=== PATIENT | female | born 1975 | race Caucasian/White ===

== ENCOUNTER 2021-09-06 13:01 | Emergency (ER) | payer BC, SELFPAY ==
[2021-09-06 13:22] VITALS: BP 128/79; PULSE 85; RESP 16; TEMP 36.4; O2SAT 95; BMI 26.5
--- NOTE | 2021-09-06 13:48 | ED_ITS ---
Documented by User: JOSE Barrientos 09/06/21 13:52 HPI - Weakness General: Chief complaint: Weakness Stated complaint: right side pain / right ear pain Time Seen by Provider: 09/06/21 13:33 History of Present Illness: Presents today with chronic right side pain that goes from head down to her foot basically. Said she needs to be worked up for MS. She said she was seen a few years ago and was told superadded MS need a spinal tap but she never got that done. She did see her primary care provider here recently who did a right shoulder x-rays and told was fine but gave her 4 intramuscular shots in the office to help with her problems. Patient said her pain is no worse today but she would like to find out what is going on. Associated symptoms: Denies chest pain, chills, fever(s), headache(s), nausea or vomiting Review of Systems Const: Denies: fever(s), chills or body aches Eyes: Denies: eye discomfort ENMT: Denies: throat pain Card: Denies: chest pain Resp: Denies: dyspnea GI: Denies: abdominal pain, nausea or vomiting Skin/Breast: Denies: rash Neuro: Reports: other (Patient said it hurts on the right side of her body from head down to her f); Denies: headache(s) Psych: Denies: depression or suicidal ideation Physical Exam Const: COMMON NORMALS: no acute distress, patient oriented x3 and alert HENMT: COMMON NORMALS: normocephalic and external ears normal HEAD & SCALP: normocephalic EXTERNAL EAR: Yes external ears normal Eye: COMMON NORMALS: EOMs intact bilaterally Neck/C-Spine: COMMON NORMALS: no JVD Resp: COMMON NORMALS: normal respiratory effort and No use of accessory muscles Cardio: COMMON NORMALS: no JVD GI: INSPECTION: Yes normal to inspection Extremity: COMMON NORMALS: normal to inspection and full ROM NARRATIVE EXTREMITY EXAM: Patient has full range of motion right side of her body neurologically she appears intact. She has no numbness or weakness in extremities. Neuro: COMMON NORMALS: patient oriented x3 SENSORIUM/ORIENTATION: Yes alert COORDINATION/BALANCE: other (Gait is normal and speech is normal) COORDINATION: other (Gait is normal and speech is normal) Psych: COMMON NORMALS: mental status grossly normal Skin: COMMON NORMALS: no rashes or lesions noted GENERAL SKIN EXAM: no rashes or lesions noted Course Vital Signs: Vital signs: Vital Signs Temperature 97.6 F 09/06/21 13:22 Pulse Rate 75 09/06/21 14:26 Respiratory Rate 18 09/06/21 14:26 Blood Pressure 123/77 09/06/21 14:26 Pulse Oximetry 95 09/06/21 14:26 MDM - Weakness Medical Decision Making Gave patient medication for pain that she has. I encouraged her to follow-up with Dr. Silva. She said she was told they were try to make an appointment for a long time ago and she never got a call back. I informed work-up for MS needs with take place in outpatient setting. Patient given chronic nature of her problems. Discharge Plan Discharge Patient Disposition: Home Clinical Impression: Side pain Condition: Stable Prescriptions: New tramadol 50 mg tablet 50 mg PO TID PRN (Reason: pain) Qty: 7 0RF Celebrex 100 mg capsule 100 mg PO BID Qty: 20 0RF Discharge Orders: Discharge ED (Routine); Ordered 09/06/21 Ordered By: Magen Navsa Referrals: Kelvin Silva,Onur Gorman MD [Primary Care Provider] - Discharge Diet: Usual diet Discharge Activity: Increase activity as tolerated Activity Restrictions/Additional Instructions: Follow-up with medical provider as directed. Take medications as prescribed. Return to the ER or your medical provider if condition worsens. Please read and understand discharge instructions. If any questions ask please. Hospital should contact you with appointment for Dr. Silva's office soon. Should get all your medical record together from previous visits to have to give to Dr. Silva. Coding Level of Care Code ED Supervisor Cold Rolling for Chg Fwd Exam Comprehensive Documented by User: Bam Gibbs MD 09/08/21 12:29 HPI - Weakness General: Chief complaint: Weakness Stated complaint: right side pain / right ear pain Time Seen by Provider: 04/16/22 13:33 Course Vital Signs: Vital signs: Vital Signs Temperature 97.6 F 09/06/21 13:22 Pulse Rate 75 09/06/21 14:26 Respiratory Rate 18 09/06/21 14:26 Blood Pressure 123/77 09/06/21 14:26 Pulse Oximetry 95 09/06/21 14:26 MDM - Weakness Medical Decision Making Gave patient medication for pain that she has. I encouraged her to follow-up with Dr. Silva. She said she was told they were try to make an appointment for a long time ago and she never got a call back. I informed work-up for MS needs with take place in outpatient setting. Patient given chronic nature of her problems. Dr. Gibbs - Patient evaluation, diagnosis, and management was performed independently by Magen Navas. I did not personally see the patient nor staff the patient with patient's provider. I did review the patient's note today and I believe this note is consistent. Discharge Plan Discharge Patient Disposition: Home Clinical Impression: Side pain Condition: Stable Prescriptions: New tramadol 50 mg tablet 50 mg PO TID PRN (Reason: pain) Qty: 7 0RF Celebrex 100 mg capsule 100 mg PO BID Qty: 20 0RF Discharge Orders: Discharge ED (Routine); Ordered 09/06/21 Ordered By: Magen Navas Referrals: Onur Warren Jr, MD [Primary Care Provider] - Discharge Diet: Usual diet Discharge Activity: Increase activity as tolerated Activity Restrictions/Additional Instructions: Follow-up with medical provider as directed. Take medications as prescribed. Return to the ER or your medical provider if condition worsens. Please read and understand discharge instructions. If any questions ask please. Hospital should contact you with appointment for Dr. Silva's office soon. Should get all your medical record together from previous visits to have to give to Dr. Silva. Coding Level of Care Code ED Supervisor Cold Rolling for Miroslavag Fwd Exam Comprehensive
[2021-09-06] MEDS: dexamethasone 10 mg/mL INJ IM (13:58)
[2021-09-06] MEDS: TRAMadol 50 mg Tablet PO (14:01)
[2021-09-06 14:26] VITALS: BP 123/77; PULSE 75; RESP 18; O2SAT 95
--- NOTE | 2021-09-08 13:08 | DCPLANNER ---
Addendum entered by Nell Baptiste 12/25/21 11:08: Patient had a follow up appointment scheduled with neurology - patient did not attend appointment. Addendum entered by Nell Baptiste 09/09/21 08:41: Patient has a follow up appointment scheduled for Wednesday, December 15, 2021 at 1:[address] Silva. Clinic will call patient with appointment information. Original Note: associate project manager had message to schedule a follow up appointment for patient with Dr. Silva. associate project manager sent patients information to the front office staff at neurology. Patients information will be printed and reviewed. Clinic will call patient with appointment information.
== END 2021-09-06 14:13 | disposition home or self-care (01) ==
PROVIDERS: Emergency Provider Nurse Practitioner Family; PCP Specialist
DX: R29.898 Other symptoms and signs involving the musculoskeletal system (principal); R53.1 Weakness; H92.01 Otalgia, right ear
CPT/HCPCS: 96372; 99283; J1100

== ENCOUNTER 2021-10-21 06:00 | Outpatient (RCR) | payer BC, SELFPAY | END 2021-10-21 23:55 | disposition home or self-care (01) | LOC: GPT 06:00 | PROVIDERS: PCP Specialist; Referring Provider Orthopaedic Surgery; Visit Provider Orthopaedic Surgery | DX: M75.01 Adhesive capsulitis of right shoulder (principal); M25.611 Stiffness of right shoulder, not elsewhere classified | CPT/HCPCS: 97110; 97140; 97163 ==

== ENCOUNTER 2021-10-22 06:00 | Outpatient (RCR) | payer BC, SELFPAY | END 2021-11-20 23:59 | disposition home or self-care (01) | LOC: GPT 06:00 | PROVIDERS: PCP Specialist; Referring Provider Orthopaedic Surgery; Visit Provider Orthopaedic Surgery | DX: M75.01 Adhesive capsulitis of right shoulder (principal); M25.611 Stiffness of right shoulder, not elsewhere classified | CPT/HCPCS: 97110; 97140 ==

== ENCOUNTER → 2021-11-19 11:16 | Outpatient (BNVA) | payer BC, SELFPAY | PROVIDERS: PCP Specialist; Visit Provider Family Medicine | DX: J02.9 Acute pharyngitis, unspecified (principal); J02.0 Streptococcal pharyngitis | CPT/HCPCS: 87880 ==

== ENCOUNTER → 2021-11-27 15:14 | Outpatient (BNVA) | payer BC, SELFPAY | PROVIDERS: PCP Specialist; Visit Provider Family Medicine | DX: S62.396A Other fracture of fifth metacarpal bone, right hand, initial encounter for closed fracture (principal); X58.XXXA Exposure to other specified factors, initial encounter | CPT/HCPCS: 73130 ==

== ENCOUNTER 2022-11-18 09:23 | Emergency (ER) | payer BC, MEDICAID, SELFPAY ==
[2022-11-18 09:36] VITALS: BP 143/93; PULSE 95; RESP 16; TEMP 36.7; O2SAT 98
--- NOTE | 2022-11-18 10:58 | W.ED.EXTPRO ---
HPI - Extremity Problem General: Chief complaint: Extremity Injury, Lower Stated complaint: leg pain Time Seen by Provider: 11/18/22 10:16 Source: patient Mode of arrival: ambulatory Limitations: no limitations History of Present Illness: 46-year-old female states she had chronic leg pain for years. States that she did swim yesterday and her pain is worsened states she is to see her PCP who gave her a pain shot but he left a month ago does not have a PCP currently states pains in both legs rates her pain a 7 out of 10 worse with walking improved with rest. Denies any back pain denies any fever Associated symptoms: Deny chest pain, fever(s) or rash Review of Systems Const: Denies: fever(s), chills, body aches or change in appetite Eyes: Denies: blurry vision or eye discomfort ENMT: Denies: throat pain or dental pain Card: Denies: chest pain Resp: Denies: dyspnea GI: Denies: abdominal pain, nausea, vomiting or diarrhea : Denies: dysuria Musc: Reports: extremity pain Skin/Breast: Denies: rash Neuro: Denies: headache(s) PFSH ED PFSH: Family History Other Diabetes Social History Smoking and tobacco status: current every day smoker cigarettes Alcohol intake: current Alcohol intake frequency: few times a month Current occupation: UNEMPLOYED Physical Exam Const: COMMON NORMALS: no acute distress, patient oriented x3 and healthy appearing HENMT: COMMON NORMALS: normocephalic and atraumatic HEAD & SCALP: normocephalic and atraumatic Eye: COMMON NORMALS: Equal, round and reactive pupils present and EOMs intact bilaterally PUPIL: Yes Equal, round and reactive pupils present Neck/C-Spine: COMMON NORMALS: full ROM Chest: COMMONS NORMALS: normal inspection of the chest and normal palpation of entire chest wall Resp: COMMON NORMALS: normal respiratory effort Cardio: COMMON NORMALS: regular rate, regular rhythm and No murmurs present (Cardio) RATE: regular rate RHYTHM: regular rhythm GI: COMMON NORMALS: non-tender INSPECTION: Yes normal to inspection Extremity: COMMON NORMALS: normal to inspection and full ROM Neuro: COMMON NORMALS: patient oriented x3, moves all extremities and no focal motor deficits Psych: COMMON NORMALS: mental status grossly normal, Normal thought process present and cooperative THOUGHT PROCESS: Normal thought process present Skin: COMMON NORMALS: no rashes or lesions noted and no wounds GENERAL SKIN EXAM: no rashes or lesions noted Course Vital Signs: Vital signs: Vital Signs Temperature 98.0 F 11/18/22 09:36 Pulse Rate 95 11/18/22 09:36 Respiratory Rate 16 11/18/22 09:36 Blood Pressure 143/93 11/18/22 09:36 Pulse Oximetry 98 11/18/22 09:36 Oxygen Delivery Me thod Room Air 11/18/22 09:36 MDM - Extremity (Nontraumatic) Medical Decision Making Patient presents here with leg pain that is chronic in nature its been going on for years we will give her morphine here we will prescribe her for Naprosyn we will get her new PCP as her PCP just move her exam here is benign. Discharge Plan Discharge Patient Disposition: Home Clinical Impression: Chronic pain Condition: Stable Prescriptions: New Naprosyn 500 mg tablet 500 mg PO BID PRN (Reason: pain) Qty: 20 0RF No Action tramadol 50 mg tablet 50 mg PO TID PRN (Reason: pain) Qty: 7 0RF duloxetine [Cymbalta] 60 mg capsule,delayed release(DR/EC) 60 mg PO DAILY cholecalciferol (vitamin D3) 50 mcg (2,000 unit) capsule 50 mcg PO DAILY ferrous sulfate [FeroSul] 325 mg (65 mg iron) tablet 325 mg PO DAILY amoxicillin-pot clavulanate [Augmentin] 500-125 mg tablet 1 tab PO TID Qty: 30 0RF Celebrex 100 mg capsule 100 mg PO BID Qty: 20 0RF Discharge Orders: Discharge ED (Routine); Ordered 11/18/22 Ordered By: Melodie Leonard Discharge Diet: Advance as tolerated Discharge Activity: Resume usual activity Patient Instructions: Chronic Pain (ED) Coding Level of Care Code ED Test Grader for Ivan Cuevas
[2022-11-18] MEDS: morphine 4 mg/mL SDV 1 mL IM (11:36)
== END 2022-11-18 11:37 | disposition home or self-care (01) ==
PROVIDERS: Emergency Provider Emergency Medicine
DX: G89.29 Other chronic pain (principal); F17.210 Nicotine dependence, cigarettes, uncomplicated
CPT/HCPCS: 96372; 99284; J2270

== ENCOUNTER 2022-12-14 13:24 | Emergency (ER) | payer BC, MEDICAID, SELFPAY ==
[2022-12-14 13:38] VITALS: BP 126/84; PULSE 106; RESP 16; TEMP 37.1; O2SAT 97; BMI 29.0
--- NOTE | 2022-12-14 15:01 | W.ED.DENTAL ---
HPI - Dental/Oral General: Chief complaint: Dental/Oral Stated complaint: tooth pain Time Seen by Provider: 12/14/22 14:30 History of Present Illness: Patient is a 46-year-old female comes to the ED with dental pain. Patient has poor dental health and says she has been having dental pain now for the last 3 weeks. She has not been able to set up a appointment with a dentist yet. She rates her dental pain currently an 8 out of 10. She has been taking naproxen at home to help with pain. Most of her pain is located in the left upper maxillary region around canine and incisors. Over the past 24 hours patient has developed some left maxillary facial edema. Denies any other symptoms. Associated symptoms: Denies fever(s) or odynophagia Review of Systems Const: Denies: fever(s), chills or fatigue Eyes: Denies: change in vision or eye discomfort ENMT: Reports: dental pain; Denies: throat pain, odynophagia, nasal discharge or nasal congestion Card: Denies: chest pain, palpitations, edema, swelling of feet/ankles, dyspnea on exertion or orthopnea Resp: Denies: dyspnea, productive cough or non-productive cough GI: Denies: abdominal pain, nausea, vomiting, diarrhea, constipation or hematochezia : Denies: flank pain, dysuria or hematuria Musc: Denies: neck pain, back pain or extremity swelling Skin/Breast: Denies: rash or new lesions Neuro: Denies: headache(s), numbness in extremities or weakness in extremities [facility] ED PFSH: Medical History (Updated 12/14/22 @ 15:07 by PAULETTE Minor) No pertinent family history Surgical History (Updated 12/14/22 @ 15:07 by PAULETTE Minor) History of cholecystectomy Family History Other Diabetes Social History Smoking and tobacco status: current every day smoker cigarettes Alcohol intake: current Alcohol intake frequency: few times a month Current occupation: UNEMPLOYED Physical Exam Const: COMMON NORMALS: no acute distress, patient oriented x3 and alert HENMT: COMMON NORMALS: normocephalic HEAD & SCALP: normocephalic FACE & SINUS: edema on the left maxilla MOUTH: Normal oral and palatal mucosa present TEETH & GINGIVA: Yes caries and Yes poor dentition THROAT: posterior oropharynx normal and uvula midline OTHER: Patient has extensive dental decay in her teeth all throughout her mouth. Neck/C-Spine: COMMON NORMALS: supple GENERAL: Yes normal visual inspection Resp: COMMON NORMALS: normal respiratory effort, No retractions, No use of accessory muscles and clear to auscultation bilaterally AUSCULTATION: clear to auscultation bilaterally Cardio: COMMON NORMALS: regular rate, regular rhythm, S1 normal heart sound present, S2 normal heart sound present, No gallops present (Cardio), No clicks present (Cardio), No murmurs present (Cardio) and Peripheral pulses 2+ throughout RATE: regular rate RHYTHM: regular rhythm HEART SOUNDS: S1 normal heart sound present and S2 normal heart sound present PERIPHERAL PULSES: Peripheral pulses 2+ throughout GI: COMMON NORMALS: Normal to inspection, nondistended, normoactive bowel sounds present, Soft to palpation, non-tender and no masses PALPATION: Yes Soft to palpation : COMMON NORMALS: Yes no CVA tenderness BLADDER/KIDNEY EXAM: Yes no CVA tenderness Back/Pelvis: COMMON NORMALS: no CVA tenderness Extremity: COMMON NORMALS: normal to inspection Neuro: COMMON NORMALS: patient oriented x3 SENSORIUM/ORIENTATION: Yes alert GAIT: Yes Normal gait present Skin: GENERAL SKIN EXAM: dry skin Course Vital Signs: Vital signs: Vital Signs Temperature 98.7 F 12/14/22 13:38 Pulse Rate 106 H 12/14/22 13:38 Respiratory Rate 16 12/14/22 13:38 Blood Pressure 126/84 12/14/22 13:38 Pulse Oximetry 97 12/14/22 13:38 Oxygen Delivery Me thod Room Air 12/14/22 13:38 MDM - Dental/Oral Medical Decision Making Patient is a 46-year-old female comes to the ED with dental pain. Patient has poor dental health and says she has been having dental pain now for the last 3 weeks. She has not been able to set up a appointment with a dentist yet. She rates her dental pain currently an 8 out of 10. She has been taking naproxen at home to help with pain. Most of her pain is located in the left upper maxillary region around canine and incisors. Over the past 24 hours patient has developed some left maxillary facial edema. Denies any other symptoms. Vitals are stable. On exam patient has extensive dental decay in her teeth all throughout her mouth. Very poor dentition. She has some left maxillary facial edema. Rest of exam is benign. Patient was diagnosed with a dental infection and told to follow-up with her dentist as soon as possible. She was sent home with a prescription for clindamycin and ibuprofen. Return ED precautions given. Patient understood and agreed with plan. Discharge Plan Discharge Patient Disposition: Home Clinical Impression: Dental infection Condition: Stable Prescriptions: New clindamycin HCl 150 mg capsule 300 mg PO QID 7 Days Qty: 56 0RF ibuprofen 800 mg tablet 800 mg PO Q8H PRN (Reason: pain) Qty: 30 0RF No Action tramadol 50 mg tablet 50 mg PO TID PRN (Reason: pain) Qty: 7 0RF duloxetine [Cymbalta] 60 mg capsule,delayed release(DR/EC) 60 mg PO DAILY cholecalciferol (vitamin D3) 50 mcg (2,000 unit) capsule 50 mcg PO DAILY ferrous sulfate [FeroSul] 325 mg (65 mg iron) tablet 325 mg PO DAILY amoxicillin-pot clavulanate [Augmentin] 500-125 mg tablet 1 tab PO TID Qty: 30 0RF Celebrex 100 mg capsule 100 mg PO BID Qty: 20 0RF Naprosyn 500 mg tablet 500 mg PO BID PRN (Reason: pain) Qty: 20 0RF Discharge Orders: Discharge ED (Routine); Ordered 12/14/22 Ordered By: Onur Kothari Referrals: Arnoldo Leavitt MD [Primary Care Provider] - Discharge Diet: Regular Discharge Activity: Increase activity as tolerated Patient Instructions: Dental Caries (Cavities), Dental Abscess (ED) Activity Restrictions/Additional Instructions: Follow-up with dentist as soon as possible to have dental infection treated. Take medications as prescribed. Return to the ER or your medical provider if condition worsens. Please read and understand discharge instructions. Thank you for choosing [facility] for your healthcare needs today. Please realize this is an emergency room and that we are providing you with a medical screening exam and this may not be complete and all inclusive of all the testing and or work up that you may need to determine your ailment or severity of your illness. It is very important that you follow up as instructed or that you return to the Emergency Department should you have concerns or if your condition changes or worsens in any way. Coding Level of Care Code ED Catalogue Maker for Ivan Cuevas
[2022-12-14] MEDS: clindamycin 150 mg Capsule 300 MG PO (15:09)
[2022-12-14] MEDS: HYDROcodone-acetaminophen 5-325 mg Tablet 1 TAB PO (15:09)
[2022-12-14] MEDS: dexamethasone 10 mg/mL INJ IM (15:12)
[2022-12-14] MEDS: ketorolac 60 mg/2 mL INJ IM (15:12)
== END 2022-12-14 15:18 | disposition home or self-care (01) ==
PROVIDERS: Emergency Provider Physician Assistant; PCP Family Medicine
DX: K04.7 Periapical abscess without sinus (principal); F17.210 Nicotine dependence, cigarettes, uncomplicated
CPT/HCPCS: 96372; 99284; J1100; J1885

== ENCOUNTER → 2023-02-10 15:12 | Outpatient (BNVA) | payer MEDICAID, SELFPAY | PROVIDERS: PCP Family Medicine; Visit Provider Nurse Practitioner Family | DX: M79.605 Pain in left leg (principal); R60.9 Edema, unspecified; M79.645 Pain in left finger(s) | CPT/HCPCS: 73130; 73590 ==

== ENCOUNTER 2023-07-09 11:02 | Emergency (ER) | payer MEDICAID, SELFPAY ==
[2023-07-09 11:43] VITALS: BP 163/101; PULSE 109; RESP 16; TEMP 36.7; O2SAT 97; BMI 32.8
--- NOTE | 2023-07-09 12:23 | ED_ITS ---
HPI - Extremity Problem General: Chief complaint: Extremity Problem,Nontraumatic Stated complaint: leg pains Time Seen by Provider: 07/09/23 11:17 Source: patient Mode of arrival: ambulatory Limitations: no limitations History of Present Illness: Patient is a 47-year-old female who presents to ED today for complaints of bilateral leg pain. According to history leg pains have been present for years. Patient states she has had multiple tests performed secondary to this complaint including labs and nerve conduction studies. Patient states she was seeing her PCP Dr. Durant in [place] and states every 6 weeks she was getting pain shots . She is not sure of the names of the medication but feels like one of them was Toradol. She at some point was told she could possibly have MS although this is never been confirmed. She is recently seen neurologist, Dr. Silva, earlier this month. She has a history of fibromyalgia. She also has a history of chronic migraines. She has been on many meds for the legs including Neurontin and Cymbalta as well as Lyrica. Complaint: extremity pain and joint pain Onset (ago): year(s) Pain Consistency: intermittent Location: left, right and lower extremity Radiation: none Exacerbating factors: walking Associated symptoms: Reports other (chronic headaches); Deny chest pain, fever(s) or rash Review of Systems Const: Denies: fever(s), chills, body aches, fatigue or malaise Eyes: Denies: change in vision or blurry vision Card: Denies: chest pain or palpitations Resp: Denies: dyspnea GI: Denies: abdominal pain Musc: Reports: extremity pain and joint pain; Denies: neck pain, back pain, extremity swelling, joint swelling, joint redness, joint warmth, joint stiffness, limited range of motion, muscle cramps, muscle we akness, decrease in muscle mass, loss of height or deformity Skin/Breast: Denies: rash Neuro: Reports: headache(s) (chronic); Denies: numbness in extremities, weakness in extremities or sensory changes PFS ED PFSH: Medical History No pertinent family history Surgical History History of cholecystectomy Family History Other Diabetes Social History Smoking and tobacco/nicotine status: current every day tobacco/nicotine user cigarettes Alcohol intake: current Alcohol intake frequency: few times a month Current occupation: UNEMPLOYED Physical Exam Const: COMMON NORMALS: no acute distress, patient oriented x3, no limitations, alert and well nourished GENERAL APPEARANCE: cooperative ORIENTATION/CONSCIOUSNESS: Yes awake, Yes oriented to person, Yes oriented to place and Yes oriented to time Resp: COMMON NORMALS: normal respiratory effort and clear to auscultation bilaterally AUSCULTATION: clear to auscultation bilaterally Cardio: COMMON NORMALS: regular rate and regular rhythm RATE: regular rate RHYTHM: regular rhythm Extremity: COMMON NORMALS: normal to inspection, full ROM, capillary refill normal, no joint enlargement, no clubbing, cyanosis or edema, no calf tenderness and no pedal edema GENERAL: Yes normal exam except as noted Neuro: COMMON NORMALS: patient oriented x3, moves all extremities, no focal motor deficits and no sensory deficits noted SENSORIUM/ORIENTATION: Yes alert, Yes oriented to person, Yes oriented to place and Yes oriented to time Skin: COMMON NORMALS: no rashes or lesions noted GENERAL SKIN EXAM: no rashes or lesions noted Course Vital Signs: Vital signs: Vital Signs Temperature 98.1 F 07/09/23 11:43 Pulse Rate 109 H 07/09/23 11:43 Respiratory Rate 18 07/09/23 12:33 Blood Pressure 163/101 07/09/23 11:43 Pulse Oximetry 98 07/09/23 12:33 Oxygen Delivery Me thod Room Air 07/09/23 11:43 MDM - Extremity (Nontraumatic) Medical Decision Making Patient has no new complaints today. Her pain has intermittently been present for years. Recommend she continue following up with her primary care provider as well as neurology. She was agreeable to a shot of IM Morphine and Toradol here prior to discharge. Medical Records I reviewed the patient's medical records. No radiology studies performed this visit Discharge Plan Discharge Condition: Stable Prescriptions: No Action mirtazapine 30 mg tablet 30 mg PO DAILY sumatriptan succinate 100 mg tablet PO cyclobenzaprine 10 mg tablet PO albuterol sulfate [Ventolin HFA] 90 mcg/actuation HFA aerosol inhaler inhalation duloxetine [Cymbalta] 60 mg capsule,delayed release(DR/EC) 60 mg PO DAILY gabapentin 400 mg capsule 400 mg PO TID Celebrex 100 mg capsule 100 mg PO BID Qty: 20 0RF Referrals: Arnoldo Leavitt MD [Primary Care Provider] - Coding Level of Care Code ED Transitional Living Specialist for Ivan Cuevas
[2023-07-09 12:33] VITALS: RESP 18; O2SAT 98
[2023-07-09] MEDS: morphine 4 mg/mL SDV 1 mL IM (12:33)
[2023-07-09] MEDS: ketorolac 60 mg/2 mL INJ IM (12:35)
[2023-07-09 12:59] VITALS: RESP 18; O2SAT 98
== END 2023-07-09 12:59 | disposition home or self-care (01) ==
PROVIDERS: Emergency Provider Physician Assistant; PCP Family Medicine
DX: M79.604 Pain in right leg (principal); M79.605 Pain in left leg; F17.210 Nicotine dependence, cigarettes, uncomplicated
CPT/HCPCS: 96372; 99284; J1885; J2270

== ENCOUNTER 2023-08-20 13:59 | Emergency (ER) | payer MEDICAID, SELFPAY ==
[2023-08-20 14:02] VITALS: BP 159/98; PULSE 124; RESP 16; TEMP 36.8; O2SAT 94
--- NOTE | 2023-08-20 14:18 | ED_ITS ---
HPI - Extremity Problem General: Chief complaint: Extremity Problem,Nontraumatic Stated complaint: leg pains Time Seen by Provider: 08/20/23 14:07 History of Present Illness: 47-year-old woman with history of chroni c leg pain and chronic migraines who presents to the emergency room with request of pain medications or steroid shots. She says Dr. Durant in [place] retired recently and he used to give her shots in her low back that would help with her pain. She was here a month ago and received several prescriptions including sumatriptan mirtazapine cyclobenzaprine and albuterol. Today she was at her neurology appointment for chronic migraines and when she finished she stopped in the ER. I discussed that I do not do intra-articular injections but I can do some systemic steroids for a while and we discussed that there are other providers in the clinic that Dr. uDrant was at and maybe she should try to get follow-up with one of them. Review of Systems Narrative: Constitutional symptoms: Negative except as documented in HPI. Skin symptoms: Negative except as documented in HPI. Eye symptoms: Negative except as documented in HPI. ENMT symptoms: Negative except as documented in HPI. Respiratory symptoms: Negative except as documented in HPI. Cardiovascular symptoms: Negative except as documented in HPI. Gastrointestinal symptoms: Negative except as documented in HPI. Genitourinary symptoms: Negative except as documented in HPI. Musculoskeletal symptoms: Negative except as documented in HPI. Neurologic symptoms: Negative except as documented in HPI. Psychiatric symptoms: Negative except as documented in HPI. Endocrine symptoms: Negative except as documented in HPI. [facility] ED PFSH: Medical History No pertinent family history Surgical History History of cholecystectomy Family History Other Diabetes Social History Smoking and tobacco/nicotine status: current every day tobacco/nicotine user cigarettes Alcohol intake: current Alcohol intake frequency: few times a month Current occupation: UNEMPLOYED Female Reproductive History: Date of last menstrual period: 02/02/23 Physical Exam Narrative: EXAM NARRATIVE: General: Alert, no acute distress. Skin: warm and dry Head: Normocephalic Neck: Trachea midline Eye: Extraocular movements are intact. Ears, nose, mouth and throat: Oral mucosa moist Respiratory: Respirations are non-labored Musculoskeletal: Normal ROM Neurological: Alert and oriented to person, place, time, and situation, No focal neurological deficit observed. Psychiatric: Cooperative, appropriate mood & affect. Course Vital Signs: Vital signs: Vital Signs Temperature 98.2 F 08/20/23 14:02 Pulse Rate 124 H 08/20/23 14:02 Respiratory Rate 16 08/20/23 14:02 Blood Pressure 159/98 08/20/23 14:02 Pulse Oximetry 94 08/20/23 14:02 Oxygen Delivery Me thod Room Air 08/20/23 14:02 MDM - Extremity (Nontraumatic) Medical Decision Making Patient has chronic issues and has no change today. We discussed options and decided to go with a steroid and some anti-inflammatory. She is agreeable to this. No radiology studies performed this visit Other Data Assessment and plan: - Discharged home - Discussed plan with patient. Answered any questions. - Evaluation and treatment of this problem were appropriate in the emergency setting. Discharge Plan Discharge Patient Disposition: Home Clinical Impression: Chronic leg pain Condition: Stable Prescriptions: New prednisone 20 mg tablet 60 mg PO DAILY Qty: 20 0RF Rx Instructions: 3 tabs (60 mg) x 3 days. 2 tabs (40 mg) x 3 days. 1 tab (20 mg) x 3 days. 1/2 tab (10 mg) x 4 days diclofenac potassium 50 mg tablet 50 mg PO BID PRN (Reason: pain) Qty: 20 0RF No Action mirtazapine 30 mg tablet 30 mg PO DAILY sumatriptan succinate 100 mg tablet PO cyclobenzaprine 10 mg tablet PO albuterol sulfate [Ventolin HFA] 90 mcg/actuation HFA aerosol inhaler inhalation duloxetine [Cymbalta] 60 mg capsule,delayed release(DR/EC) 60 mg PO DAILY gabapentin 400 mg capsule 400 mg PO TID Celebrex 100 mg capsule 100 mg PO BID Qty: 20 0RF Discharge Orders: Discharge ED (Routine); Ordered 08/20/23 Ordered By: Cathy Katz Referrals: Arnoldo Leavitt MD [Primary Care Provider] - (You have been screened and evaluated and felt safe for discharge. Health conditions do change or evolve sometimes and as such it is important that you follow up with your Primary Doctor to be re checked, 3-5 days is a general good time frame for follow up. You are always welcome to return to the ED for re assessment if your symptoms are worsening or you have new concerns) Discharge Diet: Usual diet Discharge Activity: Resume usual activity Patient Instructions: Opioid Safety, Pain Management Coding Level of Care Code ED [employer] for Ivan Cuevas
[2023-08-20] MEDS: dexamethasone 10 mg/mL INJ IM (15:33)
== END 2023-08-20 16:15 | disposition home or self-care (01) ==
PROVIDERS: Emergency Provider Emergency Medicine; PCP Family Medicine
DX: G89.29 Other chronic pain (principal); M79.604 Pain in right leg; M79.605 Pain in left leg; F17.210 Nicotine dependence, cigarettes, uncomplicated
CPT/HCPCS: 96372; 99284; J1100

== ENCOUNTER 2023-09-08 11:27 | Outpatient (CLI) | payer MEDICAID, SELFPAY ==
--- NOTE | 2023-09-08 11:30 | MM_ITS ---
WS: [id number] BILATERAL SCREENING DIGITAL TOMOSYNTHESIS MAMMOGRAM WITH CAD HISTORY: Z12.31 - Encounter for screening mammogram for malignant ... COMPARISON: None available. Bilateral CC and MLO views with tomosynthesis and synthetic mammography submitted. Computer aided det ection analyzed. Breast composition: The breasts are heterogeneously dense, which may obscure small masses. No suspici ous masses, microcalcifications or architectural distortion. IMPRESSION: MM/[place] [id number] BI-RADS: 1-Negative FOLLOW UP: 1 Year Follow-up
== END 2023-09-08 11:28 | disposition home or self-care (01) ==
LOC: MOBLMAM 11:33
PROVIDERS: PCP Nurse Practitioner Family; Visit Provider Nurse Practitioner Family
DX: Z12.31 Encounter for screening mammogram for malignant neoplasm of breast (principal)
CPT/HCPCS: 77063; 77067

== ENCOUNTER → 2023-10-06 10:59 | Outpatient (BNVA) | payer MEDICAID, SELFPAY | PROVIDERS: PCP Nurse Practitioner Family; Visit Provider Anesthesiology Pain Medicine | DX: M47.896 Other spondylosis, lumbar region (principal); M54.50 Low back pain, unspecified; G89.29 Other chronic pain; M54.16 Radiculopathy, lumbar region | CPT/HCPCS: 72110 ==

== ENCOUNTER → 2025-05-23 11:15 | Outpatient (BNVA) | payer MEDICAID, SELFPAY | PROVIDERS: PCP Nurse Practitioner Family; Visit Provider Nurse Practitioner Family | DX: M79.644 Pain in right finger(s) (principal); W19.XXXA Unspecified fall, initial encounter; M25.571 Pain in right ankle and joints of right foot; M79.671 Pain in right foot; R22.41 Localized swelling, mass and lump, right lower limb; Z87.81 Personal history of (healed) traumatic fracture | CPT/HCPCS: 73130; 73610; 73630 ==